=== PATIENT | female | born 1970 | race Caucasian/White ===

== ENCOUNTER → 2018-06-15 | Outpatient (CLI) | payer OTHER ==
[~2018-06-15] MED LIST: ACTHAR H.P80 UNIT/1 IM; ALPRAZOLAM0.25 M2 PO; FLUOXETINE HCL20 MG PO; HYDROCODON-ACE1 EA11 PO; METHOTREXATE2.5 MG PO; MINOCIN100 MG PO; PANTOPRAZOLE SO40 MG PO; SYNTHROID175 MCG PO
== END | disposition home or self-care (01) ==
LOC: CDC 15:28
DX: R53.83 Other fatigue (principal); R73.01 Impaired fasting glucose
CPT/HCPCS: 93000